=== PATIENT | male | born 1985 | race Caucasian/White ===

== ENCOUNTER 2022-01-24 00:21 | Emergency (ER) | payer SELFPAY ==
[~2022-01-24 00:21] MED LIST: FLEXERIL10 MG PO; HYDROCODONE BIT1 T11 PO; KEFLEX500 MG PO; MOTRIN800 MG PO; ULTRAM50 MG PO
[2022-01-24] MEDS ORDERED: CEPHALEXIN500 M1 PO (02:01)
[2022-01-24] MEDS ORDERED: WAL SPORIN FIRS T (02:01)
== END 2022-01-24 02:26 | disposition home or self-care (01) ==
LOC: ED 00:21
DX: S01.311A Laceration without foreign body of right ear, initial encounter (principal); Z88.1 Allergy status to other antibiotic agents; W22.8XXA Striking against or struck by other objects, initial encounter; Y93.89 Activity, other specified; Y92.89 Other specified places as the place of occurrence of the external cause; Y99.8 Other external cause status